=== PATIENT | male | born 1950 | race Caucasian/White ===

== ENCOUNTER → 2021-02-21 07:12 | Outpatient (CLI) | payer MEDICARE, SELFPAY ==
--- NOTE | ~2021-02-21 | MR_ITS ---
EXAMINATION: MR shoulder LT wo con DATE: 02/21/2021 09:09 INDICATION: Left shoulder injury and pain. TECHNIQUE: Magnetic resonance imaging (MRI) of the left shoulder was performed without intravenous co ntrast. Sequences included axial PD-weighted FS FSE, coronal oblique PD-weighted FS FSE and T2-weight ed FS FSE, and sagittal oblique T2-weighted FS FSE and T1-weighted FSE. COMPARISON: None. FINDINGS: Coracoacromial arch: The acromion undersurface is curved in morphology (type II). There is severe acromioclavicular joint osteoarthritis including inferiorly directed osteophytes. There is moderate subacromial/subdeltoid bu rsitis. Rotator cuff: There is a full-thickness tear of supraspinatus and infraspinatus tendons measuring 5.0 cm anterior t o posterior by 4.4 cm proximal to distal. Teres minor tendon is normal. There is moderate subscapular is tendinopathy with shallow articular-sided fraying. There is mild fatty atrophy of supraspinatus an d infraspinatus muscle bellies. There is increased T2-weighted signal intensity in the supraspinatus and infraspinatus muscle bellies, consistent with subacute denervation versus mild strains. Biceps tendon and glenoid labrum: Biceps tendon is in bicipital groove. There is a partial tear of biceps tendon. There is tearing of t he glenoid labrum. Fluid: There is a moderate-sized glenohumeral joint effusion. Bones/cartilage: There is shallow partial-thickness cartilage loss of glenoid and humeral head. IMPRESSION: 1. Massive full-thickness rotator cuff tear. 2. Mild glenohumeral joint chondrosis. 3. Severe acromioclavicular joint osteoarthritis. 4. Partial tear of proximal biceps tendon. 5. Moderate-sized glenohumeral joint effusion and moderate subacromial/subdeltoid bursitis. Reviewed, dictated and finalized at location A. ER QUAHOG IMPRESSION: 1. Massive full-thickness rotator cuff tear. 2. Mild glenohumeral joint chondrosis. 3. Severe acromioclavicular joint osteoarthritis. 4. Partial tear of proximal biceps tendon. 5. Moderate-sized glenohumeral joint effusion and moderate subacromial/subdelto id bursitis.
--- NOTE | ~2021-02-21 | MR_ITS ---
EXAMINATION: MR ankle LT wo con DATE: 02/21/2021 09:09 INDICATION: Left ankle pain. TECHNIQUE: Magnetic resonance imaging (MRI) of the left ankle was performed without intravenous contr ast. Sequences included sagittal PD-weighted FS FSE, sagittal PD-weighted FSE, coronal PD-weighted FS FSE, coronal PD-weighted FSE, axial PD-weighted FS FSE, and axial PD-weighted FSE. COMPARISON: None. FINDINGS: Medial ankle ligaments: There are changes of prior sprains of the deltoid ligament characterized by thickening and increased signal intensity in the superficial component and disorganized fibers in the deep component. Lateral ankle ligaments: There are changes of sprains of anterior talofibular ligament and calcaneofibular ligament characteri zed increased signal intensity. Posterior talofibular ligament is normal. There are changes of sprain of anterior tibiofibular ligament characterized by thickening and increased signal intensity. Architect Internship ior tibiofibular ligament is intact. Tendons: The medial and anterior ankle tendons are normal. The peroneal tendons and Achilles tendon are normal . Plantar fascia: There is thickening and increased signal involving central band of plantar fascia, consistent with fa sciitis. There is an enthesophyte at the calcaneal attachment. Bones/other: There is partial-thickness cartilage loss in tibiotalar joint. There is mild polyarticular osteoarthr itis of the midfoot. Fluid: There is a small subtalar joint effusion. There is subcutaneous edema about the ankle. IMPRESSION: 1. Changes of medial and lateral ankle sprains. 2. Mild polyarticular osteoarthritis. 3. Plantar fasciitis. Reviewed, dictated and finalized at location A. O[employer]MENT EDUCATIONAL [employer]ORD
== END ==
PROVIDERS: PCP Internal Medicine; Visit Provider Internal Medicine
DX: S93.402A Sprain of unspecified ligament of left ankle, initial encounter (principal); T14.90XA Injury, unspecified, initial encounter; M75.102 Unspecified rotator cuff tear or rupture of left shoulder, not specified as traumatic; M25.412 Effusion, left shoulder; M19.012 Primary osteoarthritis, left shoulder; S46.212A Strain of muscle, fascia and tendon of other parts of biceps, left arm, initial encounter; M72.2 Plantar fascial fibromatosis; M19.072 Primary osteoarthritis, left ankle and foot
CPT/HCPCS: 73221; 73721

== ENCOUNTER → 2021-02-25 13:13 | Outpatient (CLI) | payer MEDICARE, SELFPAY ==
--- NOTE | ~2021-02-25 | MR_ITS ---
EXAMINATION: MR lumbar spine wo/w con EXAM DATE: 02/25/2021 14:32 INDICATION: Low back pain, left leg pain. History of fall 2 weeks ago. Surgery 2 years ago. TECHNIQUE: Multi-sequential, multiplanar MR images of the lumbar spine were obtained without contrast . Sagittal T1, T2, T2 fat saturation images. Axial T2 weighted images. Axial T1 weighted sequence. Patient was then injected with 20 mL Multihance intravenous contrast and reimaged. Postcontrast axi al and sagittal T1-weighted fat saturation sequences were obtained. FINDINGS: L4 laminectomies. There is moderate loss of the L3-4 disc height. Mild disc disease at the other lumbar levels. There is 3-4 mm retrolisthesis L3 on L4. Scattered vertebral body hemangiomata. Mild diffuse loss of lumbar vertebral body heights, with edema at the L3 and L4 levels which could in dicate these are subacute compression fractures. The conus medullaris terminates at the L1-2 level an d has normal signal intensity and morphology. Level by level evaluation: T12-L1: Disc does not extend beyond the endplate margin. Facet arthropathy: Mild. Neural foraminal stenosis: No stenosis. Central canal stenosis: No stenosis. L1-L2: Disc does not extend beyond the endplate margin. Facet arthropathy: Mild. Neural foraminal stenosis: No stenosis. Central canal stenosis: No stenosis. L2-L3: There is a mild diffuse disc bulge. Facet arthropathy: Mild. Neural foraminal stenosis: No stenosis. Central canal stenosis: No stenosis. L3-L4: There is a moderate diffuse disc bulge. Facet arthropathy: Mild to moderate. Neural foraminal stenosis: Moderate right, mild to moderate left. Central canal stenosis: Mild. L4-L5: There is a mild to moderate diffuse disc bulge. Facet arthropathy: Moderate. Synovial cyst projecting internally from the left facet joint contributi ng to moderate central canal stenosis. Tiny synovial cyst on the right. Neural foraminal stenosis: Moderate to severe left, moderate right. Central canal stenosis: Moderate. At least moderate left lateral recess stenosis. L5-S1: There is a mild diffuse disc bulge. Facet arthropathy: Moderate to severe left, moderate right. Neural foraminal stenosis: Mild to moderate bilateral. Central canal stenosis: No stenosis. IMPRESSION: 1. Mild diffuse loss of vertebral body height with edema at L3 and L4 which could indicate subacute component to these otherwise chronic appearing compression fractures. 2. L4-5 moderate to severe left neural foraminal stenosis, moderate central canal stenosis from arth ropathy and synovial cysts. 3. Other Spondylosis above. Reviewed, dictated and finalized at location G. TAL SPECIALIST IMPRESSION: 1. Mild diffuse loss of vertebral body height with edema at L3 and L4 which co uld indicate subacute component to these otherwise chronic appearing compressio n fractures. 2. L4-5 moderate to severe left neural foraminal stenosis, moderate central ca nal stenosis from arthropathy and synovial cysts. 3. Other Spondylosis above.
[2021-02-25 14:09] LABS: Estimated Glomerular Filt Rate > 60
== END ==
PROVIDERS: PCP Internal Medicine
DX: M47.815 Spondylosis without myelopathy or radiculopathy, thoracolumbar region (principal); M48.05 Spinal stenosis, thoracolumbar region; M47.817 Spondylosis without myelopathy or radiculopathy, lumbosacral region; M48.07 Spinal stenosis, lumbosacral region
CPT/HCPCS: 72158; A9577

== ENCOUNTER → 2021-06-16 15:35 | Outpatient (CLI) | payer MEDICARE, SELFPAY ==
--- NOTE | ~2021-06-16 | XR_ITS ---
XR lumbar spine 2-3V DATE: 06/16/2021 16:15 INDICATION: Back pain TECHNIQUE: Flexion, extension and neutral standing lateral views COMPARISON: 06/08/2021 CT lumbar spine FINDINGS: There is moderately severe degenerative disc disease at L2-3 with associated retrolisthesis ; the retrolisthesis measures approximately 3 mm in flexion, 5 mm in neutral and 6 mm in extension. Moderate degenerative disc disease at L1-2. Transitional fifth lumbar vertebra. IMPRESSION: Moderately severe degenerative disc disease at L2-3 with retrolisthesis Moderate degenerative disc disease at L1-2 Transitional L5 Reviewed, dictated and finalized at location A. IMPRESSION: Moderately severe degenerative disc disease at L2-3 with retrolisth esis Moderate degenerative disc disease at L1-2 Transitional L5
--- NOTE | ~2021-06-16 | CT_ITS ---
EXAMINATION: CT lumbar spine wo con DATE: 06/16/2021 16:02 INDICATION: Synovial cyst of lumbar spine. TECHNIQUE: Computed tomography (CT) of the lumbar spine was performed without intravenous contrast. A utomated exposure control and iterative reconstruction technique were employed. The dose-length produ ct was 967.04 mGy-cm. COMPARISON: Lumbar spine MRI 02/25/2021 FINDINGS: There is 7 degrees levocurvature of lumbar spine. The most inferior pair of ribs are hypopl astic, the level of which is designated T12. L5 is a transitional segment. There is 4 mm retrolisthes is of L2 on L3. Vertebral body heights are normal. There is mildly decreased disc height at L1-L2 and severely decreased disc height at L2-L3 with endplate remodeling. The following disc levels are spec ifically discussed: L1-L2: The disc is bulging. There is moderate right and mild left facet joint osteoarthritis. There i s mild bilateral neural foraminal stenosis. There is mild central canal stenosis. L2-L3: The disc is bulging. There is mild bilateral facet joint osteoarthritis. There is moderate rig ht and mild left neural foraminal stenosis. There is mild central canal stenosis. L3-L4: The disc is bulging. There is moderate bilateral facet joint osteoarthritis. There is moderate bilateral neural foraminal stenosis. There is mild central canal stenosis. L4-L5: The disc is bulging. There is severe bilateral facet joint osteoarthritis. There is mild bilat eral neural foraminal stenosis. There is mild central canal stenosis. L5-S1: The disc does not extend beyond the endplate margin. There is no facet joint hypertrophy. Ther e is no neural foraminal stenosis. There is no central canal stenosis. IMPRESSION: 1. Severe lumbar spondylosis, stable from 02/25/2021. Reviewed, dictated and finalized at location A.
== END ==
DX: M71.38 Other bursal cyst, other site (principal); M51.36 Other intervertebral disc degeneration, lumbar region; M47.816 Spondylosis without myelopathy or radiculopathy, lumbar region; Q76.49 Other congenital malformations of spine, not associated with scoliosis
CPT/HCPCS: 72100; 72131

== ENCOUNTER → 2022-04-27 08:28 | Outpatient (CLI) | payer MEDICARE, SELFPAY ==
--- NOTE | ~2022-04-27 | XR_ITS ---
Lumbosacral Spine: AP and lateral views Clinical History: Pain COMPARISON: 06/16/2021 Findings: The normal lordotic curve is maintained. No fracture identified. Grade 1 retrolisthesis of L3 over L4 present. Facet joint degenerative changes at the lower lumbar spine are present. The sacro iliac joints are normally outlined. Impression: Grade 1 retrolisthesis of L3 over L4, unchanged. Facet joint degenerative changes at the lower lumbar spine. Reviewed, dictated and finalized at location . 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 Facet joint degenerative changes at the lower lumbar spine.
--- NOTE | ~2022-04-27 | MR_ITS ---
MRI of the lumbar spine Clinical History: Instability Technique: Axial T2-weighted images, and sagittal T1-weighted, T2-weighted, and T2 fat-sat images wer e acquired. Following intravenous administration of 20 cc MultiHance gadolinium, T1-weighted fat-sat imaging was performed in the axial and sagittal planes. COMPARISON: 02/25/2021 Findings: No acute fracture identified. Osseous alignment is stable from prior exam. Grade 1 retrolis thesis of L3 over L4 is similar to prior exam. No suspicious bone marrow signal abnormality identifie d. L4 laminectomy noted. At L1-L2, there is no disc bulge or herniation. There is mild facet arthropathy. No spinal canal sten osis or neural foraminal narrowing. At L2-L3, there is no disc bulge or herniation. There is mild facet joint arthropathy. No spinal jose luis l stenosis or neural foraminal narrowing. At L3-L4, disc bulge and facet arthropathy are present. No juan spinal canal stenosis. There is jah re right neural foraminal narrowing. Left neural foramen is preserved. At L4-L5, there is disc bulge and facet arthropathy. There is a 6 mm left-sided synovial cyst. There is mild thecal sac compression related to these underlying fractures. There is severe bilateral neura l foraminal narrowing, left worse than right. At L5-S1, there is advanced facet arthropathy. No disc bulge or herniation. No spinal canal stenosis or definite neural foraminal narrowing. Paravertebral soft tissues are unremarkable. No abnormal postcontrast enhancement identified. Impression: Stable grade 1 retrolisthesis of L3 over L4. Moderate degenerative spondylosis at L4-L5, with associated 6 mm left-sided synovial cyst at this lev el. There is severe bilateral neural foraminal narrowing at this level. Severe right neural foraminal narrowing at L3-L4. Reviewed, dictated and finalized at location . UDING MACHINE OPERATOR Impression: Stable grade 1 retrolisthesis of L3 over L4. Moderate degenerative spondylosis at L4-L5, with associated 6 mm left-sided syn ovial cyst at this level. There is severe bilateral neural foraminal narrowing at this level. Severe right neural foraminal narrowing at L3-L4.
== END ==
PROVIDERS: PCP Neurological Surgery; Visit Provider Neurological Surgery
DX: M43.16 Spondylolisthesis, lumbar region (principal); M47.816 Spondylosis without myelopathy or radiculopathy, lumbar region; M71.38 Other bursal cyst, other site
CPT/HCPCS: 72100; 72158; A9577

== ENCOUNTER → 2022-07-29 13:19 | Outpatient (CLI) | payer MEDICARE, SELFPAY ==
--- NOTE | ~2022-07-29 | MR_ITS ---
EXAMINATION: MR lumbar spine wo con DATE: 07/29/2022 14:18 INDICATION: Lumbar spine instability TECHNIQUE: Magnetic resonance imaging (MRI) of the lumbar spine was performed without intravenous con trast. Sequences included sagittal T2-weighted FSE, sagittal T2-weighted FS FSE, sagittal T1-weighted FSE, and axial T2-weighted FSE. COMPARISON: Lumbar spine MR and radiographs dated 04/27/2022 FINDINGS: 8 degree lumbar levocurvature. Transitional thoracolumbar segment with bilateral hypoplastic riblets which per convention established on CT dated 06/16/2021 will be designated T12. There are 4 more cauda l nonrib-bearing lumbar segments and a transitional bilaterally sacralized L5 segment. 5 mm retrolist hesis L2 on L3 and 2 mm retrolisthesis L3 on L4. Transitional S1 segment with small S1-S2 disc space. Vertebral body heights are normal. Moderate to severe right anterior predominant disc height loss wi th associated degenerative endplate remodeling with fibrovascular and fibrofatty endplate changes at L2-L3. Mild disc height loss at L1-L2 and L4-L5. Annular fissures at both L2-L3 and L3-L4. The conus medullaris terminates at T12-L1. There is normal signal in the caudal spinal cord. Chronic partial la minectomy at L3. Paravertebral soft tissues are otherwise unremarkable. The following disc levels are specifically discussed: T12-L1: Disc is mildly bulging. There is moderate bilateral facet joint osteoarthritis. There is no n eural foraminal stenosis. There is no central canal stenosis. L1-L2: Disc is mildly bulging. There is moderate bilateral facet joint osteoarthritis. There is mild bilateral neural foraminal stenosis. There is mild central canal stenosis. L2-L3: Disc is bulging with annular fissure. There is mild bilateral facet joint osteoarthritis. Ther e is moderate right and mild left neural foraminal stenosis. There is moderate central canal stenosis . L3-L4: Disc is bulging with annular fissure. There is moderate bilateral facet joint osteoarthritis. There is moderate right and moderate to severe left neural foraminal stenosis. There is moderate cent ral canal stenosis. L4-L5: Disc is mildly bulging. There is severe bilateral facet joint osteoarthritis. There is mild ri ght and mild to moderate left neural foraminal stenosis. There is minimal central canal stenosis. L5-S1: The disc does not extend beyond the endplate margin. There is mild bilateral facet joint osteo arthritis. There is no neural foraminal stenosis. There is no central canal stenosis. IMPRESSION: 1. No significant change in mild lumbar levocurvature with severe spondylosis. Reviewed, dictated and finalized at location A.
== END ==
PROVIDERS: PCP Internal Medicine; Visit Provider Neurological Surgery
DX: M53.2X6 Spinal instabilities, lumbar region (principal); M47.896 Other spondylosis, lumbar region
CPT/HCPCS: 72148

== ENCOUNTER → 2022-08-11 09:15 | Outpatient (CLI) | payer MEDICARE, SELFPAY ==
--- NOTE | ~2022-08-11 | XR_ITS ---
EXAMINATION: XR hip RT min 3V w AP pelvis DATE: 08/11/2022 09:36 INDICATION: Right hip pain. TECHNIQUE: An anteroposterior view of the pelvis and 2 views of right hip were obtained. COMPARISON: None. FINDINGS: Bone alignment is normal. No fracture. There is mild osteoarthritis of the hips. IMPRESSION: 1. Mild osteoarthritis of the hips. Reviewed, dictated and finalized at location A.
== END ==
PROVIDERS: PCP Internal Medicine
DX: M16.11 Unilateral primary osteoarthritis, right hip (principal)
CPT/HCPCS: 73502

== ENCOUNTER 2023-07-22 08:36 | Outpatient (CLI) | payer MEDICARE, SELFPAY ==
--- NOTE | ~2023-07-22 | XR_ITS ---
XR lumbar spine min 4V 07/22/2023 09:38 Indication: Lumbar stenosis Procedure: 5 views lumbar spine Comparison: Lumbar spine series dated 04/27/2019 Findings: There is severe disc narrowing at L2-3 with retrolisthesis at this level. There are margina l osteophytes anteriorly. There is facet hypertrophy at L3-4, L4-5 and L5-S1. No significant alterati on of alignment with flexion/extension. There is disc narrowing at L3-4 and L5-S1. Impression: 1: Severe lumbar spondylosis with degenerative retrolisthesis at L2-3. Reviewed, dictated and finalized at location B. Impression: 1: Severe lumbar spondylosis with degenerative retrolisthesis at L2-3.
--- NOTE | ~2023-07-22 | XR_ITS ---
EXAMINATION: XR scoliosis survey DATE: 07/22/2023 09:38 INDICATION: Lumbar stenosis. TECHNIQUE: An anteroposterior and lateral views of entire spine standing were obtained. COMPARISON: None. FINDINGS: Right femoral head stands 11 mm higher than left. There are 12 pairs of ribs. There are 5 n onrib-bearing lumbar segments. There is 8 degrees levocurvature from C7 to T6 by the Suarez method. The re is 8 degrees dextrocurvature from T6 to T12. There is 11 degrees levoscoliosis from T12 to L4. The re is 5 mm retrolisthesis of L3 on L4. There is severe degenerative disc disease at L3-L4. IMPRESSION: 1. Scoliosis. 2. Right femoral head stands 11 mm higher than the left. Reviewed, dictated and finalized at location E.
--- NOTE | ~2023-07-22 | MR_ITS ---
MRI of the lumbar spine Clinical History: Stenosis Technique: Axial T2-weighted images, and sagittal T1-weighted, T2-weighted, and and T2 fat-sat images were acquired. COMPARISON: 07/29/2022 Findings: No acute fracture identified. Osseous alignment is similar to prior exam. There is 8 mm ret rolisthesis of L2 over L3. There is 4 mm retrolisthesis of L3-L4. There are reactive marrow signal ch anges due to degenerative disc disease, particularly at the L2-L3 level. At L1-L2, there is no disc bulge or effusion. There is moderate facet arthropathy. No central canal s tenosis or neural foraminal narrowing. At L2-L3, there is advanced degenerative disc narrowing. Disc bulge and moderate to advanced facet ar thropathy are present. No juan central canal stenosis. There is severe right neural foraminal narrow ing. There is mild left neural foraminal narrowing. At L3-L4, there is diffuse disc bulge with severe facet arthropathy. There is moderate to advanced ce ntral canal stenosis/thecal sac compression. There is severe bilateral neural foraminal compromise. At L4-L5, there is minimal disc bulge with severe facet arthropathy. No central canal stenosis. There is moderate right neural foraminal narrowing, and mild left neural foraminal narrowing. At L5-S1, there is no disc bulge or herniation. No spinal canal stenosis or neural foraminal narrowin g. Paravertebral soft tissues are unremarkable. Impression: 8 mm retrolisthesis of L2 over L3. 4 mm retrolisthesis of L3 over L4. Severe degenerative spondylosis, especially at L3-L4, as detailed above. Reviewed, dictated and finalized at [facility]. Impression: 8 mm retrolisthesis of L2 over L3. 4 mm retrolisthesis of L3 over L4. Severe degenerative spondylosis, especially at L3-L4, as detailed above.
== END 2023-07-22 08:37 ==
LOC: MICIMG 08:38
PROVIDERS: PCP Neurological Surgery; Visit Provider Neurological Surgery
DX: M48.061 Spinal stenosis, lumbar region without neurogenic claudication (principal); M41.86 Other forms of scoliosis, lumbar region; M43.06 Spondylolysis, lumbar region
CPT/HCPCS: 72082; 72110; 72148

== ENCOUNTER 2024-08-21 13:21 | Outpatient (CLI) | payer MEDICARE, SELFPAY ==
--- NOTE | ~2024-08-21 | XR_ITS ---
Lumbosacral Spine: AP and lateral views Clinical History: Pain Findings: There is posterior fusion from L3 through S1 with bilateral rods and transpedicular screws present. Interbody fusion device present at the L3-L4 disc space. There is underlying 5 mm retrolisth esis of L3 over L4, without instability evident on flexion or extension views. The sacroiliac joints are normally outlined. Impression: Posterior fusion from L3 through S1, with interbody fusion at L3-L4. Underlying 5 mm retrolisthesis of L3 over L4. No instability evident. Reviewed, dictated and finalized at location . Impression: Posterior fusion from L3 through S1, with interbody fusion at L3-L4. Underlying 5 mm retrolisthesis of L3 over L4. No instability evident.
--- NOTE | ~2024-08-21 | MR_ITS ---
MRI of the lumbar spine Clinical History: Back pain Technique: Axial T2-weighted images, and sagittal T1-weighted, T2-weighted, and STIR images were acqu ired. Findings: There is posterior fusion from L3 through S1, bilateral rods and transpedicular screws pres ent. Disc fusion device present at L3-L4 disc space. No acute fracture or subluxation seen. No suspic ious bone marrow signal abnormality. At L1-L2, there is no disc bulge or herniation. There is mild facet arthropathy. No central canal destiny nosis or neural foraminal narrowing. At L2-L3, there is no disc bulge or herniation. There is moderate facet arthropathy. No central canal stenosis or neural foraminal narrowing. At L3-L4, there is no disc bulge or herniation. Prior posterior decompression. No spinal canal stenos is or neural foraminal narrowing. At L4-L5, there is no disc bulge or herniation. Posterior decompression. No spinal canal stenosis or definite left neural foraminal narrowing. Possib le mild right neural foraminal narrowing. At L4-L5, there is no disc bulge or herniation. There is prior posterior decompression. No spinal can al stenosis. Probable mild right neural foraminal narrowing. Left neural foramen probably intact. At L5-S1, there is no disc bulge or herniation. No spinal canal stenosis or neural foraminal narrowin g. Paravertebral soft tissues are unremarkable. Impression: Postoperative changes from L3 through S1, as detailed above. Mild degenerative spondylitic changes, as above. Reviewed, dictated and finalized at [facility]. Impression: Postoperative changes from L3 through S1, as detailed above. Mild degenerative spondylitic changes, as above.
== END 2024-08-21 13:22 | disposition home or self-care (01) ==
LOC: GOSHIMG 13:22
PROVIDERS: PCP Internal Medicine; Visit Provider Neurological Surgery
DX: M43.26 Fusion of spine, lumbar region (principal); M43.27 Fusion of spine, lumbosacral region; Z98.1 Arthrodesis status
CPT/HCPCS: 72110; 72148

== ENCOUNTER 2024-11-22 09:49 | Outpatient (CLI) | payer MEDICARE, SELFPAY ==
--- NOTE | ~2024-11-22 | CT_ITS ---
EXAMINATION: CT sinus wo con DATE: 11/22/2024 10:06 INDICATION: Chronic maxillary sinusitis TECHNIQUE: Computed tomography (CT) of the paranasal sinuses was performed without intravenous contrast. The dose-length product was 304.78 mGy-cm. COMPARISON: None FINDINGS: There is mucosal thickening of the left maxillary and ethmoid sinuses. Mastoids are pneumatized. No significant nasal septal deviation. Right ostiomeatal unit is patent. There are surgical changes of left ostiomeatal unit. No mucoperiosteal reaction. IMPRESSION: 1. Moderate sinus disease of the left maxillary ethmoid sinuses. Reviewed, dictated and finalized at location O.
== END 2024-11-22 09:50 | disposition home or self-care (01) ==
LOC: MICIMG 09:51
PROVIDERS: PCP Internal Medicine; Visit Provider Otolaryngology
DX: J32.0 Chronic maxillary sinusitis (principal)
CPT/HCPCS: 70486